=== PATIENT | male | born 1980 | race Caucasian/White ===

== ENCOUNTER 2024-01-29 08:15 | Outpatient (CLI) | payer OTHER, SELFPAY ==
--- OUTSIDE RECORDS SUMMARY | 2024-01-29 08:17 | XMS_ITS | Clinical Summary ---
Author Organization [facility] Address [address] [place] [phone] Phone Care Team Providers Care Quality Control Operator Name Role Phone Nabil Jang MD Primary Care Provider Allergies Active Allergy Reactions Criticality Noted Date Comments Hydrocodone-Acetaminophen Rash Low 10/29/2019 Medications Medication Sig Dispensed Refills Start Date End Date Status buPROPion XL (WELLBUTRIN XL) 150 MG 24 hr tablet Take 150 mg by mouth 1 (one) time each day Active Active Problems Problem Noted Date Diagnosed Date Syphilis titer test positive 11/03/2019 Social History Tobacco Use Types Packs/Day Years Used Date Smoking Tobacco: Former Cigarettes Q uit: 2013 Smokeless Tobacco: Never Alcohol Use Standard Drinks/Week Comments Yes 0 (1 standard drink = 0.6 oz pur e alcohol) AUDIT-C Answer Date Recorded Q1: How often do you have a drink containing alc ohol? 2-4 times a month 11/02/2019 Average Number of Drinks Not on file 020 Frequency of Binge Drinking Not on file 10/19 Sex and Gender Information Value Date Recorded Sex Assigned at Not on file Gender Identity Not on file Sexual Orientation Not on file Last Filed Vital Signs Vital Sign Reading Time Taken Comments Blood Pressure 130/75 11/02/2019 9:03 AM CDT Pulse 77 11/02/2019 9:03 AM CDT Temperature 36.9 ??C (98.4 ??F) 11/02/2019 9:03 AM CD T Respiratory Rate - - Oxygen Saturation - - Inhaled Oxygen Concentration - - Weight 88.9 kg (196 lb) 11/02/2019 9:03 AM CDT Height 180.3 cm (5' 11) 11/02/2019 9:03 AM CDT Body Mass Index 27.34 11/02/2019 9:03 AM CDT Plan of Treatment Health Maintenance Due Date Last Done Comments Influenza Vaccine (#1) 2023 05/06/2019, 2014 Care Teams Quality Control Operator Relationship Specialty [place] [address] [place] [address] PCP - General Family Medicine 10/29/19
--- OUTSIDE RECORDS SUMMARY | 2024-01-29 08:18 | XMS_ITS | Clinical Summary ---
Author Organization [facility] Address [address], [place] [address] Care Team Providers Care Apigee Developer Name Role Phone Carmen Monreal APRN, [facility] Primary Care Provid er Source Comments You are receiving this document as you are listed as the primary care provider,follow-up provider, or the patient has been referred to you for consultation.This is in compliance with the Medicare andMedicaid EHR Incentive Program,which states Providers who transition their patient to another setting of careor provider of care or refers their patient to another provider of care shouldprovide summary care record for each transition of care or referral. [facility] Allergies Active Allergy Reactions Criticality Noted Date Comments Hydrocodone-Acetaminophen Rash 10/28/2013 Medications No known medications Active Problems No known active problems Immunizations Name Administration Dates Next Due TDAP (ADACEL) 10/04/2009 Family History Medical History Relation Name Comments Diabetes Maternal Uncle Diabetes Paternal Grandmother Cataract Negative Family History Glaucoma Negative Family History Macular Degeneration Negative Family History Relation Name Status Comments Maternal Uncle Paternal Grandmother Social History Tobacco Use Types Packs/Day Years Used Date Smoking Tobacco: Former Cigarettes Q uit: 12/21/2005 Smokeless Tobacco: Never Alcohol Use Standard Drinks/Week Comments Yes 0 (1 standard drink = 0.6 oz pur e alcohol) rare occas Sex and Gender Information Value Date Recorded Sex Assigned at Not on file Gender Identity Not on file Sexual Orientation Not on file Last Filed Vital Signs Vital Sign Reading Time Taken Comments Blood Pressure 108/76 01/07/2017 8:27 AM CDT Pulse 76 01/07/2017 8:27 AM CDT Temperature 36.9 ??C (98.4 ??F) 11/23/2015 1 0:22 AM CDT Respiratory Rate 14 10/28/2013 11:5 6 AM CDT Oxygen Saturation 98% 11/10/2013 1:00 PM CDT Inhaled Oxygen Concentration - - Weight 102.2 kg (225 lb 6.4 oz) 01/07/2017 8:27 AM CDT Height 181.6 cm (5' 11.5) 12/24/2016 1 0:48 AM CDT Body Mass Index 31 12/24/2016 10:48 AM CDT Plan of Treatment Health Maintenance Due Date Last Done Comments Hep C Screening (Preventive Services) 1981 HIV Screening (Preventive Services) 1997 Adult Preventive Visit 07/24/1999 HepB (1) 2000 Cholesterol 2016 DTaP/Tdap/Td (2 - Tdap) 10/05/2019 10/04/2009 COVID-19 Vaccine ( - 2023-2 5 season) 2023 Influenza (#1) 2023 Zoster/Shingles (1 of 2) 07/24/2031 HPV Vaccine Aged Out No longer eligi ble based on patient's age to complete this topic HepA Aged Out No longer eligi ble based on patient's age to complete this topic Hib Aged Out No longer eligi ble based on patient's age to complete this topic IPV (Polio) Aged Out No longer eligi ble based on patient's age to complete this topic RSV Aged Out No longer eligi ble based on patient's age to complete this topic MCV4 Aged Out No longer eligi ble based on patient's age to complete this topic Pneumococcal Aged Out No longer eligi ble based on patient's age to complete this topic Care Teams Apigee Developer Relationship Specialty Start Date End Date Carmen Monreal APRN, DIRECTOR [facility] [id number] [place] [address] PCP - General 11/10/13
== END 2024-01-29 08:16 | disposition home or self-care (01) ==
PROVIDERS: PCP Emergency Medicine; Visit Provider Emergency Medicine
DX: E78.5 Hyperlipidemia, unspecified (principal); Z13.228 Encounter for screening for other metabolic disorders; Z13.29 Encounter for screening for other suspected endocrine disorder
CPT/HCPCS: 80053; 80061; 84443

== ENCOUNTER 2024-11-02 07:57 | Outpatient (CLI) | payer OTHER, SELFPAY | END 2024-11-02 07:58 | disposition home or self-care (01) | LOC: NFLDREF 11-03 16:08 | PROVIDERS: PCP Emergency Medicine; Referring Provider Emergency Medicine; Visit Provider Emergency Medicine | DX: E78.5 Hyperlipidemia, unspecified (principal) | CPT/HCPCS: 80061 ==

== ENCOUNTER 2025-02-09 13:36 | Outpatient (CLI) | payer OTHER, SELFPAY | END 2025-02-09 13:37 | disposition home or self-care (01) | LOC: NFLDREF 02-12 17:02 | PROVIDERS: Visit Provider Family Medicine | DX: Z00.00 Encounter for general adult medical examination without abnormal findings (principal); Z13.6 Encounter for screening for cardiovascular disorders | CPT/HCPCS: 80053; 80061 ==